=== PATIENT | female | born 1990 | race Caucasian/White ===

== ENCOUNTER 2017-08-18 12:30 | Emergency (ER) | payer MEDICAID ==
[~2017-08-18] VITALS: Ht 157.5 cm; Wt 52.2 kg
[~2017-08-18 12:30] MED LIST: ZOLOFT
[2017-08-18 12:37] VITALS: BP_SYST 127
[2017-08-18 14:00] VITALS: BP_SYST 127
== END 2017-08-18 14:00 | disposition home or self-care (01) ==
LOC: SED 12:30
DX: J06.9 Acute upper respiratory infection, unspecified (principal); H65.00 Acute serous otitis media, unspecified ear; J30.9 Allergic rhinitis, unspecified; J45.909 Unspecified asthma, uncomplicated
CPT/HCPCS: 99283

== ENCOUNTER 2017-10-31 02:45 | Emergency (ER) | payer MEDICAID ==
[~2017-10-31] VITALS: Ht 157.5 cm; Wt 54.4 kg
--- NOTE | 2017-10-31 02:47 | NUR ---
ER MD Ji at bedside evaluating the patient
--- NOTE | 2017-10-31 02:48 | NUR ---
Patient to ER bed 7 to gown for evaluation. Side rails up.
[2017-10-31 02:50] VITALS: BP_SYST 115
--- NOTE | 2017-10-31 03:00 | NUR ---
Patient to ER C/O one week of sore throat and right ear pain. Patient states "i can't even swallow, can't turn my head" Right ear pain 8/10 and throat pain 7/10. Afebrile, unlabored breathing, no signs of acute distress.
[2017-10-31 03:20] VITALS: BP_SYST 119
--- NOTE | 2017-10-31 03:20 | NUR ---
Patient given written and verbal discharge instructions and verbalizes understanding. ER MD Margy Nassar discussed with patient the results and treatment provided. Patient in stable condition. ID arm band removed. Rx of amoxicillin given. Patient educated on pain management and to follow up with PMD. Pain Scale 0/10. Opportunity for questions provided and answered. Medication side effect fact sheet provided.
== END 2017-10-31 03:20 | disposition home or self-care (01) ==
LOC: SED 02:45
DX: H66.92 Otitis media, unspecified, left ear (principal); J45.909 Unspecified asthma, uncomplicated
CPT/HCPCS: 99283